=== PATIENT | male | born 1960 | race Caucasian/White ===

== ENCOUNTER → 2016-09-04 | Outpatient (CLI) | payer BC ==
[~2016-09-04] MED LIST: ALEVE220 MG PO; AUGMENTIN 875-875 MG PO; CILOXAN 5 ML5 M1 OT; DULCOLAX5 M1 PO; HYDR12.5C PO; MECLIZINE HCL25 M2 PO; MEDROL DOSEPAK4 MG PO; NICOTINE TRANSD1 TDM TD; VITAMIN B1250 MCG PO; VITAMIN D50000 I3 PO; ZOFRAN4 MG PO; [UNRECOGNIZED DRUG - REMARK] BC
== END | disposition home or self-care (01) ==
LOC: MRI 09-01 09:00
DX: I73.9 Peripheral vascular disease, unspecified (principal); R51 Headache; H74.8X1 Other specified disorders of right middle ear and mastoid; H91.90 Unspecified hearing loss, unspecified ear

== ENCOUNTER 2016-11-15 10:27 | Emergency (ER) | payer BC ==
[~2016-11-15 10:27] MED LIST changes: -DULCOLAX5 M1 PO; -NICOTINE TRANSD1 TDM TD; -VITAMIN B1250 MCG PO; -ZOFRAN4 MG PO; -[UNRECOGNIZED DRUG - REMARK] BC
[2016-11-15] MEDS ORDERED: HYDR12.5C PO (10:51)
[2016-11-15] MEDS ORDERED: DULCOLAX5 M1 PO (10:52)
[2016-11-15] MEDS ORDERED: ZOFRAN4 MG PO (10:52)
[2016-11-15] MEDS ORDERED: VITAMIN D50000 I3 PO (10:52)
[2016-11-15 11:08] LABS: BASO # 0.1 10*3/uL (0.0-0.1); BASO % 1.6 % (0.0-1.0); EOS # 0.2 10*3/uL (0.0-0.4); EOS % 2.8 % (1.0-4.0); HEMATOCRIT 43.6 % (42.0-52.0); HEMOGLOBIN 14.7 g/dl (14.0-18.0); LYMPH # 1.9 10*3/uL (1.3-4.4); MEAN CELL VOLUME 86.7 fl (80.0-94.0); MEAN CORPUSCULAR HGB 29.2 pg (27.0-31.0); MEAN CORPUSCULAR HGB CONC 33.7 g/dl (33.0-37.0); MEAN PLATELET VOLUME 10.9 fl (9.6-12.3); MONO # 0.4 10*3/uL (0.1-1.0); MONO % 5.8 % (3.0-9.0); NEUT # 3.8 10*3/uL (2.3-7.9); NEUT % 59.6 % (47.0-73.0); PLATELET COUNT AUTOMATED 227 10*3/uL (130-400); RED BLOOD COUNT 5.03 10*6/uL (4.50-5.90); RED CELL DISTRI WIDTH 13.9 % (0-14.5); WHITE BLOOD COUNT 6.4 10*3/uL (4.8-10.8)
[2016-11-15 11:17] LABS: PROTHROMBIN TIME 10.5 SECONDS (9.0-12.4)
[2016-11-15 11:26] LABS: ALBUMIN 4.1 gm/dl (3.1-4.5); ALKALINE PHOSPHATASE 51 U/L (45-117); BILIRUBIN, TOTAL 0.4 mg/dl (0.2-1.0); BUN 22 mg/dl (7-24); CARBON DIOXIDE 29 mmol/L (21-32); CHLORIDE 105 mmol/L (98-107); EST GLOM FILT AFRICAN AMERICAN > 60 ml/min; GLUCOSE 104 mg/dL (65-99); MAGNESIUM 2.2 mg/dL (1.5-2.1); POTASSIUM 4.9 mmol/L (3.5-5.1); SGOT/AST 19 IU/L (3-35); SGPT/ALT 29 U/L (12-78); SODIUM 140 mmol/L (136-145); TOTAL PROTEIN 7.6 gm/dL (6.4-8.2)
[2016-11-15 11:27] LABS: TROPONIN I < 0.015 ng/ml (<0.045)
== END 2016-11-15 11:59 | disposition short-term general hospital (02) ==
LOC: ED 10:27
PROVIDERS: Emergency Medicine Emergency Medical Services
DX: G45.9 Transient cerebral ischemic attack, unspecified (principal); F17.200 Nicotine dependence, unspecified, uncomplicated; Z79.899 Other long term (current) drug therapy

== ENCOUNTER 2016-11-19 17:41 | Emergency (ER) | payer BC ==
[~2016-11-19] VITALS: Wt 70.3 kg
[~2016-11-19 17:41] MED LIST changes: +DULCOLAX5 M1 PO; +ZOFRAN4 MG PO
[2016-11-19] MEDS ORDERED: VITAMIN B1250 MCG PO (17:54)
[2016-11-19] MEDS ORDERED: NICOTINE TRANSD1 TDM TD (17:54)
[2016-11-19] MEDS ORDERED: [UNRECOGNIZED DRUG - REMARK] BC (17:55)
[2016-11-19 18:18] LABS: BASO # 0.1 10*3/uL (0.0-0.1); BASO % 0.9 % (0.0-1.0); EOS # 0.1 10*3/uL (0.0-0.4); EOS % 1.7 % (1.0-4.0); HEMATOCRIT 38.3 % (42.0-52.0); HEMOGLOBIN 12.8 g/dl (14.0-18.0); LYMPH # 1.4 10*3/uL (1.3-4.4); LYMPH % 21.3 % (27.0-41.0); MEAN CELL VOLUME 86.3 fl (80.0-94.0); MEAN CORPUSCULAR HGB 28.8 pg (27.0-31.0); MEAN CORPUSCULAR HGB CONC 33.4 g/dl (33.0-37.0); MEAN PLATELET VOLUME 10.1 fl (9.6-12.3); MONO # 0.3 10*3/uL (0.1-1.0); MONO % 4.5 % (3.0-9.0); NEUT # 4.7 10*3/uL (2.3-7.9); NEUT % 71.4 % (47.0-73.0); PLATELET COUNT AUTOMATED 203 10*3/uL (130-400); RED BLOOD COUNT 4.44 10*6/uL (4.50-5.90); RED CELL DISTRI WIDTH 13.8 % (0-14.5); WHITE BLOOD COUNT 6.6 10*3/uL (4.8-10.8)
[2016-11-19 18:34] LABS: ALKALINE PHOSPHATASE 53 U/L (45-117); BILIRUBIN, TOTAL 0.4 mg/dl (0.2-1.0); BUN 15 mg/dl (7-24); CARBON DIOXIDE 24 mmol/L (21-32); CHLORIDE 102 mmol/L (98-107); EST GLOM FILT AFRICAN AMERICAN > 60 ml/min; GLUCOSE 115 mg/dL (65-99); MAGNESIUM 2.1 mg/dL (1.5-2.1); POTASSIUM 3.6 mmol/L (3.5-5.1); SGOT/AST 15 IU/L (3-35); SGPT/ALT 25 U/L (12-78); SODIUM 141 mmol/L (136-145); TOTAL PROTEIN 7.5 gm/dL (6.4-8.2)
[2016-11-19 18:35] LABS: TROPONIN I < 0.015 ng/ml (<0.045)
[2016-11-19 20:38] LABS: BILIRUBIN NEGATIVE (NEGATIVE); BLOOD NEGATIVE (NEGATIVE); CLARITY SL CLOUDY (CLEAR); COLOR YELLOW (YELLOW); GLUCOSE NEGATIVE (NEGATIVE); KETONE NEGATIVE (NEGATIVE); LEUKO ESTERASE NEGATIVE (NEGATIVE); NITRITE NEGATIVE (NEGATIVE); PH 6.5 (5.0-9.0); PROTEIN TRACE (NEGATIVE)
[2016-11-19 20:48] LABS: BACTERIA 2+; EPITHELIAL CELLS 0-2; MUCOUS TRACE; RBC 0-2 rbc/hpf (0-2); URINE REFLEX COMMENT YES (NO)
== END 2016-11-19 21:26 | disposition home or self-care (01) ==
LOC: ED 17:41
PROVIDERS: Nurse Practitioner Family
DX: R56.9 Unspecified convulsions (principal); R03.0 Elevated blood-pressure reading, without diagnosis of hypertension; Z86.73 Personal history of transient ischemic attack (TIA), and cerebral infarction without residual deficits; Z79.899 Other long term (current) drug therapy

== ENCOUNTER → 2016-12-29 | Outpatient (CLI) | payer BC ==
[~2016-12-29] MED LIST changes: +NICOTINE TRANSD1 TDM TD; +VITAMIN B1250 MCG PO; +[UNRECOGNIZED DRUG - REMARK] BC
== END | disposition home or self-care (01) ==
LOC: LAB 10:03
DX: R56.9 Unspecified convulsions (principal)

== ENCOUNTER → 2017-04-27 | Outpatient (CLI) | payer BC ==
[2017-04-27 10:31] LABS: HEMOGLOBIN 12.1 g/dl (14.0-18.0); MEAN CELL VOLUME 90.7 fl (80.0-94.0); MEAN CORPUSCULAR HGB 29.7 pg (27.0-31.0); MEAN CORPUSCULAR HGB CONC 32.7 g/dl (33.0-37.0); MEAN PLATELET VOLUME 9.5 fl (9.6-12.3); RED BLOOD COUNT 4.08 10*6/uL (4.50-5.90); WHITE BLOOD COUNT 5.2 10*3/uL (4.8-10.8)
[2017-04-27 11:07] LABS: ALBUMIN 3.9 gm/dl (3.1-4.5); ALKALINE PHOSPHATASE 75 U/L (45-117); BUN 9 mg/dl (7-24); CHLORIDE 104 mmol/L (98-107); CHOLESTEROL 199 mg/dL (<200); CREATININE 1.14 mg/dL (0.70-1.30); HDL CHOLESTEROL 40 mg/dl (40-60); LDL CHOLESTEROL 126 mg/dL (9-159); POTASSIUM 4.3 mmol/L (3.5-5.1); SGOT/AST 19 IU/L (3-35); SGPT/ALT 25 U/L (12-78); SODIUM 141 mmol/L (136-145); TOTAL PROTEIN 7.9 gm/dL (6.4-8.2); TRIGLYCERIDES 165 mg/dl (<150); VLDL CHOLESTEROL 33 mg/dL (6-40)
[2017-04-27 11:37] LABS: VITAMIN D, 25-HYDROXY 51.6 ng/mL (30-100)
== END | disposition home or self-care (01) ==
LOC: LAB 10:18
PROVIDERS: Family Medicine
DX: Z12.5 Encounter for screening for malignant neoplasm of prostate (principal); E78.00 Pure hypercholesterolemia, unspecified; E55.9 Vitamin D deficiency, unspecified; R53.83 Other fatigue

== ENCOUNTER → 2017-10-28 | Outpatient (CLI) | payer BC ==
[2017-10-28 09:21] LABS: HEMATOCRIT 37.7 % (42.0-52.0); MEAN CELL VOLUME 90.2 fl (80.0-94.0); MEAN CORPUSCULAR HGB 28.7 pg (27.0-31.0); MEAN CORPUSCULAR HGB CONC 31.8 g/dl (33.0-37.0); MEAN PLATELET VOLUME 10.8 fl (9.6-12.3); RED BLOOD COUNT 4.18 10*6/uL (4.50-5.90); RED CELL DISTRI WIDTH 14.6 % (0-14.5); WHITE BLOOD COUNT 5.7 10*3/uL (4.8-10.8)
[2017-10-28 09:37] LABS: ALBUMIN 3.6 gm/dl (3.1-4.5); ALKALINE PHOSPHATASE 69 U/L (45-117); BUN 12 mg/dl (7-24); CHLORIDE 105 mmol/L (98-107); CHOLESTEROL 172 mg/dL (<200); CREATININE 0.96 mg/dL (0.70-1.30); HDL CHOLESTEROL 47 mg/dl (40-60); LDL CHOLESTEROL 102 mg/dL (9-159); POTASSIUM 3.8 mmol/L (3.5-5.1); SGOT/AST 25 IU/L (3-35); SGPT/ALT 33 U/L (12-78); SODIUM 140 mmol/L (136-145); TOTAL PROTEIN 7.1 gm/dL (6.4-8.2); TRIGLYCERIDES 114 mg/dl (<150); VLDL CHOLESTEROL 23 mg/dL (6-40)
== END | disposition home or self-care (01) ==
LOC: LAB 08:25
PROVIDERS: Family Medicine
DX: C34.90 Malignant neoplasm of unspecified part of unspecified bronchus or lung (principal); E55.9 Vitamin D deficiency, unspecified; E78.00 Pure hypercholesterolemia, unspecified; I10 Essential (primary) hypertension

== ENCOUNTER 2017-11-20 15:53 | Emergency (ER) | payer BC ==
[~2017-11-20] VITALS: Ht 177.8 cm; Wt 66.7 kg
[2017-11-20] MEDS ORDERED: ASPIRIN CHEWABL81 MG PO (15:58)
[2017-11-20] MEDS ORDERED: LEVETIRACETAM500 MG PO (15:58)
[2017-11-20] MEDS ORDERED: CEPHALEXIN500 M1 PO (18:20)
== END 2017-11-20 18:45 | disposition home or self-care (01) ==
LOC: ED 15:53
DX: S61.432A Puncture wound without foreign body of left hand, initial encounter (principal); Z79.82 Long term (current) use of aspirin; W22.8XXA Striking against or struck by other objects, initial encounter; Y93.89 Activity, other specified; Y92.89 Other specified places as the place of occurrence of the external cause; Y99.8 Other external cause status

== ENCOUNTER → 2018-01-12 | Day surgery (SDC) | payer BC ==
[~2018-01-12] VITALS: Ht 177.8 cm; Wt 65.8 kg
[~2018-01-12] MED LIST changes: +ASPIRIN CHEWABL81 MG PO; +CEPHALEXIN500 M1 PO; +LEVETIRACETAM500 MG PO; +ONE DAILY MULT1 EAC2 PO; +VITAMIN D-32000 UNI1 PO
--- NOTE | ~2018-01-12 | O ---
[place], [place] OPERATIVE NOTE NAME: KALA JUAN UNIT #: [id number] ROOM: DOCTOR: LACI MCNAIR MD BIRTHDATE: [birth year] DOS: 01/12/2018 GASTROENDOSCOPIC REPORT INDICATIONS: The patient is a 57-year-old patient who has presented for colonic screening, undergoing investigation. PAST MEDICAL HISTORY: Lung CA, status post chemotherapy, status post history of seizure. SOCIAL HISTORY: Still smoker, nonalcohol consumer. FAMILY HISTORY: Noncontributory. ALLERGIES: No known medication. PAST SURGICAL HISTORY: Left ear tube. PROCEDURE: Today's procedure part of investigation is colonoscopy. PREMEDICATION: Propofol. SCOPE: Olympus folding colonoscope 10L video. REPORT: After putting the patient in left lateral position and application of lubricant to rectal pouch and digital examination, the scope was introduced. Thereafter, under direct visualization, advanced through the length of colon without difficulty. Extreme tortuosity of hepatic flexure particularly was identified. Base of the cecum explored, appendiceal orifice photographed. Air was suctioned out gradually. Scope was withdrawn from ascending, transverse, and descending colon. The patient extubated and tolerated the procedure well. IMPRESSION: Tortuous colon. No evidence of carcinoma in the colon. PLAN AND DISCUSSION: I have advised the patient to stop smoking. He is still remaining active smoker despite lung CA in 2017, status post chemoradiation therapy. He was advised to have routine followup with you in office. I thank you very much indeed. [place], [place] OPERATIVE NOTE NAME: KALA JUAN UNIT #: [id number] ROOM: DOCTOR: LACI MCNAIR MD BIRTHDATE: [birth year] LACI MCNAIR MD CM:OPRECORD:OPERATIVE NOTE [id number] DORIS MCNAIR MD 01/12/18 1301 interface
[2018-01-12 09:37] VITALS: BP 106/71
[2018-01-12 10:30] VITALS: BP 113/81
[2018-01-12 10:45] VITALS: BP 115/76
[2018-01-12 11:00] VITALS: BP 117/81
== END | disposition home or self-care (01) ==
LOC: SDC 01-07 12:30
DX: Z12.11 Encounter for screening for malignant neoplasm of colon (principal); Z85.118 Personal history of other malignant neoplasm of bronchus and lung; K63.89 Other specified diseases of intestine; I10 Essential (primary) hypertension; I25.10 Atherosclerotic heart disease of native coronary artery without angina pectoris; F17.210 Nicotine dependence, cigarettes, uncomplicated; Z79.899 Other long term (current) drug therapy; Z82.49 Family history of ischemic heart disease and other diseases of the circulatory system

== ENCOUNTER → 2020-05-29 | Outpatient (CLI) | payer BC ==
[2020-05-29 07:49] LABS: MEAN CELL VOLUME 90.6 fl (80.0-94.0); MEAN CORPUSCULAR HGB 28.9 pg (27.0-31.0); MEAN PLATELET VOLUME 10.6 fl (9.6-12.3); RED BLOOD COUNT 5.08 10*6/uL (4.50-5.90); RED CELL DISTRI WIDTH 13.8 % (0-14.5); WHITE BLOOD COUNT 5.9 10*3/uL (4.8-10.8)
[2020-05-29 08:16] LABS: ALBUMIN 3.9 gm/dl (3.1-4.5); ALKALINE PHOSPHATASE 57 U/L (45-117); BUN 13 mg/dl (7-24); CHLORIDE 109 mmol/L (98-107); CHOLESTEROL 197 mg/dL (<200); CREATININE 0.97 mg/dL (0.70-1.30); HDL CHOLESTEROL 45 mg/dl (40-60); LDL CHOLESTEROL 124 mg/dL (9-159); POTASSIUM 4.4 mmol/L (3.5-5.1); SGOT/AST 31 IU/L (3-35); SGPT/ALT 34 U/L (12-78); SODIUM 140 mmol/L (136-145); TOTAL PROTEIN 7.5 gm/dL (6.4-8.2); TRIGLYCERIDES 139 mg/dl (<150); VLDL CHOLESTEROL 28 mg/dL (6-40)
[2020-05-30 08:08] LABS: RHEUMATOID ARTHRITIS FACTOR <10.0 IU/mL (0.0-13.9)
[2020-05-30 09:09] LABS: HEP B CORE AB, IGM Negative (Negative); HEPATITIS B SURFACE AG Negative (Negative); HEPATITIS C VIRUS ANTIBODY <0.1 (0.0-0.9)
== END | disposition home or self-care (01) ==
LOC: LAB 07:11
PROVIDERS: ATTEND Family Medicine
DX: Z12.5 Encounter for screening for malignant neoplasm of prostate (principal); M54.9 Dorsalgia, unspecified; E55.0 Rickets, active; E78.00 Pure hypercholesterolemia, unspecified; M19.90 Unspecified osteoarthritis, unspecified site; M79.10 Myalgia, unspecified site

== ENCOUNTER → 2020-06-07 | Outpatient (CLI) | payer BC | END | disposition home or self-care (01) | LOC: RAD 07:53 | PROVIDERS: ATTEND Family Medicine | DX: M47.817 Spondylosis without myelopathy or radiculopathy, lumbosacral region (principal); M48.061 Spinal stenosis, lumbar region without neurogenic claudication ==

== ENCOUNTER → 2020-08-26 | Outpatient (CLI) | payer SELFPAY | END | disposition home or self-care (01) | LOC: COVID19 09:55 | PROVIDERS: ATTEND Family Medicine | DX: Z20.828 Contact with and (suspected) exposure to other viral communicable diseases (principal) ==

== ENCOUNTER → 2020-10-26 | Outpatient (CLI) | payer BC ==
[2020-10-26 08:25] LABS: HEMATOCRIT 44.3 % (42.0-52.0); MEAN CELL VOLUME 90.4 fl (80.0-94.0); MEAN CORPUSCULAR HGB 29.4 pg (27.0-31.0); MEAN CORPUSCULAR HGB CONC 32.5 g/dl (33.0-37.0); MEAN PLATELET VOLUME 10.5 fl (9.6-12.3); RED BLOOD COUNT 4.9 10*6/uL (4.50-5.90); RED CELL DISTRI WIDTH 13.4 % (0-14.5)
[2020-10-26 08:56] LABS: ALBUMIN 3.8 gm/dl (3.1-4.5); ALKALINE PHOSPHATASE 67 U/L (45-117); BUN 13 mg/dl (7-24); CHLORIDE 105 mmol/L (98-107); CHOLESTEROL 197 mg/dL (<200); CREATININE 1.01 mg/dL (0.70-1.30); FREE T4 0.88 ng/dl (0.76-1.46); HDL CHOLESTEROL 44 mg/dl (40-60); LDL CHOLESTEROL 122 mg/dL (9-159); POTASSIUM 4.3 mmol/L (3.5-5.1); SGOT/AST 19 IU/L (3-35); SGPT/ALT 27 U/L (12-78); SODIUM 139 mmol/L (136-145); TOTAL PROTEIN 7.4 gm/dL (6.4-8.2); TRIGLYCERIDES 156 mg/dl (<150); VLDL CHOLESTEROL 31 mg/dL (6-40)
== END | disposition home or self-care (01) ==
LOC: LAB 07:43
PROVIDERS: ATTEND Family Medicine
DX: Z13.220 Encounter for screening for lipoid disorders (principal); C34.90 Malignant neoplasm of unspecified part of unspecified bronchus or lung; R21 Rash and other nonspecific skin eruption; E55.9 Vitamin D deficiency, unspecified

== ENCOUNTER → 2021-04-13 | Outpatient (CLI) | payer OTHER | END | disposition home or self-care (01) | LOC: RAD 09:38 | PROVIDERS: ATTEND Family Medicine | DX: R05 Cough (principal) ==

== ENCOUNTER → 2021-10-12 | Outpatient (CLI) | payer OTHER ==
[2021-10-12 11:28] LABS: HEMATOCRIT 44.7 % (42.0-52.0); MEAN CELL VOLUME 87.8 fl (80.0-94.0); MEAN CORPUSCULAR HGB 28.7 pg (27.0-31.0); MEAN CORPUSCULAR HGB CONC 32.7 g/dl (33.0-37.0); MEAN PLATELET VOLUME 10.5 fl (9.6-12.3); RED BLOOD COUNT 5.09 10*6/uL (4.50-5.90); RED CELL DISTRI WIDTH 14.8 % (0-14.5); WHITE BLOOD COUNT 6.6 10*3/uL (4.8-10.8)
[2021-10-12 11:50] LABS: ALBUMIN 3.9 gm/dl (3.1-4.5); ALKALINE PHOSPHATASE 67 U/L (45-117); BUN 12 mg/dl (7-24); CHLORIDE 106 mmol/L (98-107); CHOLESTEROL 192 mg/dL (<200); CREATININE 1.08 mg/dL (0.70-1.30); LDL CHOLESTEROL 111 mg/dL (9-159); POTASSIUM 4.6 mmol/L (3.5-5.1); SGOT/AST 15 IU/L (3-35); SGPT/ALT 21 U/L (12-78); SODIUM 136 mmol/L (136-145); TOTAL PROTEIN 7.4 gm/dL (6.4-8.2); TRIGLYCERIDES 180 mg/dl (<150)
[2021-10-12 12:41] LABS: VITAMIN D, 25-HYDROXY 33.1 ng/mL (30-100)
== END | disposition home or self-care (01) ==
LOC: LAB 10:44
PROVIDERS: ATTEND Family Medicine
DX: Z12.5 Encounter for screening for malignant neoplasm of prostate (principal); K21.9 Gastro-esophageal reflux disease without esophagitis; E55.9 Vitamin D deficiency, unspecified

== ENCOUNTER → 2023-10-09 | Outpatient (CLI) | payer OTHER, MEDICARE ==
[~2023-10-09] MED LIST changes: +CYCLOBENZAPRINE10 MG PO; +PREDNISONE50 MG PO
[2023-10-09 10:22] LABS: HEMATOCRIT 42.9 % (42.0-52.0); MEAN CELL VOLUME 91.3 fl (80.0-94.0); MEAN CORPUSCULAR HGB 29.4 pg (27.0-31.0); MEAN CORPUSCULAR HGB CONC 32.2 g/dl (33.0-37.0); MEAN PLATELET VOLUME 10.2 fl (9.6-12.3); RED BLOOD COUNT 4.7 10*6/uL (4.50-5.90); RED CELL DISTRI WIDTH 14.6 % (0-14.5); WHITE BLOOD COUNT 8.5 10*3/uL (4.8-10.8)
[2023-10-09 10:46] LABS: ALKALINE PHOSPHATASE 55 U/L (46-116); BUN 14 mg/dl (9-23); CHLORIDE 107 mmol/L (98-107); CHOLESTEROL 190 mg/dL (<200); LDL CHOLESTEROL 97 mg/dL (9-159); POTASSIUM 4.3 mmol/L (3.4-5.1); SGPT/ALT 18 U/L (5-49); TOTAL PROTEIN 6.6 gm/dL (6.0-8.0); TRIGLYCERIDES 213 mg/dl (<150)
== END | disposition home or self-care (01) ==
LOC: LAB 10:09
PROVIDERS: ATTEND Family Medicine
DX: Z12.5 Encounter for screening for malignant neoplasm of prostate (principal); M54.31 Sciatica, right side; G40.909 Epilepsy, unspecified, not intractable, without status epilepticus